=== PATIENT | female | born 1955 | race Caucasian/White ===

== ENCOUNTER 2019-03-10 08:48 | Outpatient (CLI) | payer MEDICAID | END 2019-03-10 23:59 | disposition home or self-care (01) | LOC: WOUND 08:48 | PROVIDERS: ATTEND Internal Medicine | DX: S91.012A Laceration without foreign body, left ankle, initial encounter (principal); M25.572 Pain in left ankle and joints of left foot; Z87.891 Personal history of nicotine dependence; Z90.49 Acquired absence of other specified parts of digestive tract; X58.XXXA Exposure to other specified factors, initial encounter; Y93.89 Activity, other specified; Y92.89 Other specified places as the place of occurrence of the external cause; Y99.8 Other external cause status | CPT/HCPCS: 97597; 99215 ==

== ENCOUNTER 2019-03-24 10:02 | Outpatient (CLI) | payer MEDICAID | END 2019-03-24 23:59 | disposition home or self-care (01) | LOC: WOUND 10:02 | PROVIDERS: ATTEND Internal Medicine | DX: S91.012D Laceration without foreign body, left ankle, subsequent encounter (principal); M25.572 Pain in left ankle and joints of left foot; Z87.891 Personal history of nicotine dependence; Z90.49 Acquired absence of other specified parts of digestive tract; X58.XXXD Exposure to other specified factors, subsequent encounter | CPT/HCPCS: 99213 ==